=== PATIENT | female | born 1980 | race Hispanic/Latino ===

== ENCOUNTER 2021-11-26 09:12 | Inpatient (IN) | payer SELFPAY ==
[2021-11-26] MEDS ORDERED: Lidocaine 1% (PF) 30 ML VIAL ONE (11:23)
[2021-11-26] MEDS ORDERED: Lidocaine 1% w/Epinephrine 1:200K 30 ML VIAL FS SCH (11:30)
[2021-11-26] MEDS ORDERED: Dextrose 50% Abboject 50 ML SYRINGE SLOW IVP PRN (11:51)
[2021-11-26] MEDS ORDERED: Ondansetron PF 4 MG/2 ML Vial IVP PRN (11:51)
[2021-11-26] MEDS ORDERED: traMADol HCl 50 MG TAB PO PRN (11:51)
[2021-11-26] MEDS ORDERED: Acetaminophen 325 MG TAB PO PRN (11:51)
[2021-11-26] MEDS ORDERED: Dextrose 5% in Water 1,000 ML IV PRN (11:51)
[2021-11-26] MEDS ORDERED: Ondansetron ODT 4 MG TAB PO PRN (11:51)
[2021-11-26] MEDS ORDERED: Morphine 2 MG/ML VIAL SLOW IVP PRN (11:51)
[2021-11-26 12:42] LABS: #Eosinphils 0.1 10x3/uL (0.0-0.5); #Monocytes 1.1 10x3/uL (0.0-1.1); #Neutrophils 8.7 10x3/uL (1.5-8.4); %Basophils 0.2 % (0.0-2.0); %Lymphocytes 13.6 % (18.0-47.0); %Monocytes 9.9 % (0.0-10.0); Hemoglobin 12.4 g/dL (12.0-15.5); Mean Corpuscular HGB CONC 34.5 g/dL (32.0-36.0); Mean Corpuscular Volume 86.7 fl (81.6-98.3); Mean Platelet Volume 10.5 fl (7.4-10.4); Platelet Count 264 10x3/uL (150-450); RBC Distribution Width 13.7 % (11.5-14.5); Red Blood Cell (RBC) Count 4.14 10x6/uL (3.90-5.03); White Blood Cell (WBC) Count 11.5 10x3/uL (3.5-10.5)
[2021-11-26 12:51] LABS: ALT (SGPT) 44 U/L (8-55); AST (SGOT) 30 U/L (5-34); Alkaline Phosphatase 101 U/L (40-110); Anion Gap 13 mmol/L (10-20); BUN (Urea Nitrogen) 7 mg/dL (7.0-18.7); Bilirubin, Total 0.4 mg/dL (0.2-1.2); Calc. Creatinine Clearance 0 mL/min (70-130); Calcium 8.9 mg/dL (7.8-10.44); Carbon Dioxide 21 mmol/L (22-29); Chloride 105 mmol/L (98-107); Estimated GFR 103; Globulin 3.6 g/dL (2.4-3.5); Glucose 110 mg/dL (70-105); Potassium 3.6 mmol/L (3.5-5.1); Protein, Total 7.6 g/dL (6.0-8.3); Sodium 135 mmol/L (136-145)
[2021-11-26] MEDS ORDERED: ceFAZolin 2 GM/Dextrose 50 ML IVPB ONE (14:28)
[2021-11-26] MEDS ORDERED: VANCOMYCIN 1.5 GM, Admixture Fee 1 EACH in Sodium Chloride 0.9% 500 ML IVPB SCH (17:00)
[2021-11-26] MEDS: HYDROcodone/Acetaminophen 10/325 mg Tablet PO PRN (17:20)
[2021-11-27] MEDS: HYDROcodone/Acetaminophen 10/325 mg Tablet PO PRN ×3 (00:11→22:22)
[2021-11-27 04:56] LABS: #Eosinphils 0.2 10x3/uL (0.0-0.5); #Monocytes 1.1 10x3/uL (0.0-1.1); #Neutrophils 8.4 10x3/uL (1.5-8.4); %Basophils 0.3 % (0.0-2.0); %Eosinophils 1.6 % (0.0-6.0); %Lymphocytes 18.4 % (18.0-47.0); %Neutrophils 70.4 % (40.0-75.0); Hemoglobin 11.5 g/dL (12.0-15.5); Mean Corpuscular HGB CONC 33.5 g/dL (32.0-36.0); Mean Corpuscular Hemoglobin 29.7 pg (27.0-33.0); Mean Corpuscular Volume 88.6 fl (81.6-98.3); Mean Platelet Volume 10.5 fl (7.4-10.4); Platelet Count 274 10x3/uL (150-450); RBC Distribution Width 13.8 % (11.5-14.5); Red Blood Cell (RBC) Count 3.87 10x6/uL (3.90-5.03); White Blood Cell (WBC) Count 11.9 10x3/uL (3.5-10.5)
[2021-11-27] MEDS: Vancomycin HCl 1 GM in Sodium Chloride 0.9% 250 ML 250 ML IVPB SCH ×2 (05:49→17:13)
[2021-11-27] MEDS: Enoxaparin Sodium 40 MG/0.4 ML SYRINGE SC SCH (09:27)
[2021-11-27] MEDS ORDERED: Sodium Chloride 0.9% 50 ML ONE (15:02)
[2021-11-27] MEDS ORDERED: CEFAZOLIN 2 GM VIAL ONE (15:02)
[2021-11-27 20:43] LABS: SARS-CoV-2 NAA Rapid Test Not Detected (NotDetected)
[2021-11-28] MEDS: Vancomycin HCl 1 GM in Sodium Chloride 0.9% 250 ML 250 ML IVPB SCH (04:42)
[2021-11-28] MEDS: HYDROcodone/Acetaminophen 10/325 mg Tablet PO PRN ×2 (04:46→12:43)
[2021-11-28 04:52] LABS: Vancomycin, Trough 5.9 ug/mL
[2021-11-28] MEDS: Enoxaparin Sodium 40 MG/0.4 ML SYRINGE SC SCH (09:25)
[2021-11-28] MEDS ORDERED: Vancomycin HCl 1 GM in Sodium Chloride 0.9% 250 ML 250 ML IVPB SCH (13:00)
[2021-11-28 13:26] VITALS: BP 126/69; TEMP 97.8
== END 2021-11-28 15:30 | disposition home or self-care (01) | DRG 603 ==
LOC: CSHERS 09:12 → CSHTELE 15:16
PROVIDERS: ADMIT Hospitalist; ATTEND Hospitalist
PROC: 0X9 Anatomical Regions, Upper Extremities, Drainage (ICD-10-PCS; principal; 2021-11-26)
DX: L02.411 Cutaneous abscess of right axilla (principal); N61.1 Abscess of the breast and nipple; Z20.822 Contact with and (suspected) exposure to COVID-19
CPT/HCPCS: 10060; 36415; 36416; 80053; 80202; 85025; 87070; 87205; 96374; J0690; J1650; J2001; J3370; J7030; J7050; U0002